=== PATIENT | female | born 1955 | race Hispanic/Latino ===

== ENCOUNTER 2016-10-10 13:17 | Emergency (ER) | payer OTHER, SELFPAY ==
--- NOTE | 2016-10-10 14:40 | ERRECORD ---
[facility] EMERGENCY RECORD HPI ABSCESS (13:50 JLOY) CHIEF COMPLAINT: Patient presents for evaluation of Pt with an area of swelling on her left lower back x8 years that she was told was a cyst. It started itching the last few days and today opened and a large amount of white material came out. Only minimal bleeding now. No pain. No fever. No other symptoms. HISTORIAN: History provided by patient. LOCATION: Symptoms are localized. TIME COURSE: Patient unable to describe onset of symptoms, There has been no change in the patient's symptoms over time. ASSOCIATED WITH: No associated chills, Associated with drainage, currently resolved, No associated fever, No associated proximal streaking, No associated warmth. COMPLICATING FACTORS: Complicating factors for wound healing include:, patient with history of diabetes. EXACERBATED BY: Patient's condition exacerbated by nothing. RELIEVED BY: Patient's condition relieved by nothing. TETANUS: Tetanus status up to date. ROS (13:52 JLOY) CONSTITUTIONAL: Historian denies chills, denies fever. GI: Historian denies nausea, denies vomiting. SKIN: Historian reports induration, reports skin lesions. NEUROLOGIC: Historian denies dizziness, denies headache. PAST MEDICAL HISTORY MEDICAL HISTORY: Notes: Cirrhosis of liver, Hep C, Flu vaccine up to date, Pneumococcal vaccine up to date, Past medical history includes history of diabetes, Past medical history includes gastrointestinal disease, cirrhosis, Past medical history includes hematological history, Past medical history includes history of hypertension. (13:40 LHAL) FEMALE SURGICAL HISTORY: vein related to right eye, Surgical history of cholecystectomy. (13:40 LHAL) PSYCHIATRIC HISTORY: Psychiatric history includes, anxiety, depression. (13:40 LHAL) SOCIAL HISTORY: Patient is a former tobacco user. (13:40 LHAL) NOTES: Nursing records reviewed, Agree with nursing records. (13:54 JLOY) KNOWN ALLERGIES No Known Drug Allergies CURRENT MEDICATIONS (13:38 LHAL) metFORMIN: TABLET : Strength - 500 mg : ORAL Patient Dose: 500 mg Oral 2 times a day. traZODone: &a-1R&a+25V*p+0X*c6416G*c202B*c15G*c2P*p-0X&a-25V&a+1R Name: Nidhi Bocanegra : 1955 F61 MedRec: [id number] AcctNum: [id number] Prepared: MonOct 10, 2016 13:59 by Interface Page 1 of 2 pMD [facility] EMERGENCY RECORD TABLET : Strength - 50 mg : ORAL Patient Dose: 50 mg Oral. VITAL SIGNS (13:30 LHAL) VITAL SIGNS: BP: 191/79 (Sitting), Pulse: 65 (Regular), Resp: 16 (Non-Labored), Temp: 98.8 (Oral), Pain: 7 (Constant), O2 sat: 98 on Room Air, Time: 10/10/2016 13:30. PHYSICAL EXAM (13:53 JL) CONSTITUTIONAL: Vital signs reviewed, Patient appears non toxic, Patient alert and oriented to person, place and time. EYES: Eye exam included findings of eyelids normal to inspection, Pupils equally round and reactive to light, Conjunctiva normal. RESPIRATORY CHEST: Respiratory exam included findings of no respiratory distress, Chest exam included findings of chest movement symmetrical. BACK: Back exam included findings of, left lower back with open sore, minimal swelling at border, minimal bloody drainage, no erythema or purulence. NEURO: Chuy coma scale 15, Neuro exam findings include patient oriented to person, place and time, Speech normal. SKIN: Skin exam included findings of skin warm, dry, and normal in color. PSYCHIATRIC: Normal affect. PROBLEM LIST No recorded problems DIAGNOSIS (13:47 JLOY) FINAL: PRIMARY: SEBACEOUS CYST. PRESCRIPTION No recorded prescriptions DISPOSITION PATIENT: Disposition Type: Discharge, Disposition: *Discharge Home. (13:47 JL) Patient left the department. (13:55 [facility]) Payan: NORIS=MD Curtis, Jamshid [facility]=OTILIA Garcia, Sarah &a-1R&a+25V*p+0X*e6238W*c202B*c15G*c2P*p-0X&a-25V&a+1R Name: Nidhi Bocanegra : 1955 F61 MedRec: [id number] AcctNum: [id number] Prepared: MonOct 10, 2016 13:59 by Interface Page 2 of 2 pMD MTDD
--- NOTE | 2016-10-10 14:44 | PICIS ---
[facility] EMERGENCY RECORD TRIAGE (13:38 LHAL) TRIAGE NOTES: HAS OPEN SORE TO LEFT LOWER BACK SINCE YEST, HAS HAD "BUMP" THERE FOR 8 YR. (13:38 LHAL) PATIENT: NAME: Nidhi Bocanegra, AGE: 61, GENDER: female, : Mon1955, TIME OF GREET: MonOct 10, 2016 13:18, PREFERRED LANGUAGE: Israeli, ETHNICITY: or , ECODE BILLING MAP: [facility], SSN: [id number], Zip Code: [address], KG WEIGHT: 75.75, PHONE: , , , PERSON ID: [id number], PCP: THOMAS. (13:38 LHAL) COMPLAINT: ABSCESS ON BACK. (13:38 LHAL) ADMISSION: URGENCY: 4 Non Urgent, ADMISSION SOURCE: Home, TRANSPORT: CAR, BED: ER -03. (13:38 LHAL) ASSESSMENT: Assessment: "BUMP" TO LEFT LOWER BACK X 8 YR, NOW OPEN AREA AFTER PUTTING ALOE VERA ON IT YESTERDAY WITH BLOODY DRAINAGE, Symptoms began YESTERDAY. (13:40 LHAL) PAIN: Patient complains of pain described as, aching, on a scale 0-10 patient rates pain as 7, Pain is constant, No aggravating factors, No relieving factors. (13:40 LHAL) IMMUNIZATIONS: Flu vaccine not up to date, Tetanus immunization up to date, Pneumococcal vaccine up to date. (13:40 LHAL) SIRS SCORING: Heart Rate 55-109 (0), Temp range 96.8-101.1 (0), respiratory rate 12-24 (0), Mental Status altered: no (0), Infection or Suspected Infection: No. (13:40 LHAL) TRIAGE SCREENING: Patient denies suicidal ideation, Patient denies presence of domestic violence. (13:40 LHAL) LMP: LMP: Menopause. (13:40 LHAL) PROVIDERS: TRIAGE NURSE: Sarah Garcia RN. (13:38 LHAL) VITAL SIGNS: BP 191/79, (Sitting), Pulse 65, (Regular), Resp 16, (Non-Labored), Temp 98.8, (Oral), Pain 7, (Constant), O2 Sat 98, on Room Air, Time 10/10/2016 13:30. (13:30 LHAL) KNOWN ALLERGIES No Known Drug Allergies CURRENT MEDICATIONS (13:38 LHAL) metFORMIN: TABLET : Strength - 500 mg : ORAL Patient Dose: 500 mg Oral 2 times a day. traZODone: TABLET : Strength - 50 mg : ORAL Patient Dose: 50 mg Oral. VITAL SIGNS (13:30 LHAL) VITAL SIGNS: BP: 191/79 (Sitting), Pulse: 65 (Regular), Resp: 16 (Non-Labored), Temp: 98.8 (Oral), Pain: 7 (Constant), O2 sat: 98 on Room Air, Time: 10/10/2016 13:30. &a-1R&a+25V*p+0X*g4379D*c202B*c15G*c2P*p-0X&a-25V&a+1R Name: Nidhi Bocanegra : 1955 F61 MedRec: [id number] AcctNum: [id number] Prepared: MonOct 10, 2016 14:04 by Interface Page 1 of 4 pMD [facility] EMERGENCY RECORD NURSING ASSESSMENT: SKIN (13:38 LHAL) CONSTITUTIONAL: Patient arrives ambulatory, Gait steady, History obtained from patient, Patient appears, uncomfortable, Patient cooperative, Patient alert, Oriented to person, place and time, Skin warm, Skin dry, Skin normal in color, Mucous membranes pink, Mucous membranes moist, Patient is well-groomed, Patient complains of SMALL OPEN SORE TO LEFT LOWER BACK. PAIN: aching pain, burning pain, TO OPEN SORE AREA, Onset of pain YESTERDAY, constant, on a scale 0-10 patient rates pain as 7, Pain exacerbated by nothing, Nothing has been tried to alleviate the pain. SKIN: Skin assessment findings include skin warm, Skin dry, Skin normal in color, Inspection findings include lesion(s), to LEFT LOWER BACK, Description: FAMILY DESCRIBES PT MAY HAVE HAD A CYST TO LEFT LOWER BACK X 8 YR, FAMILY PUT ALOE VERA ON IT YESTERDAY BECAUSE IT WAS BOTHERING HER, THEN AREA OPENED UP AND HAD WHITISH DRAINAGE, NOW HAS SMALL OPENING TO IT WITH BLOODY DRAINAGE., HAS 4X4 TO AREA., Inspection findings include no rash, Inspection findings include no redness, Inspection findings include no signs of infection, Inspection findings include no signs of trauma, Inspection findings include no swelling. SAFETY: Side rails up, Cart/Stretcher in lowest position, Family at bedside, Call light within reach, Hospital ID band on. NURSING PROCEDURE: BEDSIDE TESTING (13:50 LHAL) GLUCOSE: Glucose testing indicated for diabetic patient, Capillary blood sample, Result (mg/dl) 305. FOLLOW-UP: After procedure, results given to Dr. DR SORTO, Notes: PT ATE A BANANA JUST INSTITUTION DIRECTOR. SAFETY: Side rails up, Cart/Stretcher in lowest position, Family at bedside, Call light within reach, Hospital ID band on. NURSING PROCEDURE: DISCHARGE NOTE (13:53 LHAL) DISCHARGE: Patient discharged to home, ambulating without assistance, family driving, accompanied by other family member, Summary of Care printed/ provided, Patient requested and was provided an electronic copy of Discharge Instructions, Transition record given to patient, Discharge instructions given to patient, Simple or moderate discharge teaching performed, by Tacos GARCIA RN, Medication reconciliation form given, and reviewed with patient, Above person(s) verbalized understanding of discharge instructions and follow-up care, Notes: DC HOME STABLE, REDRESSED WOUND WITH 4X4. BELONGINGS: Belongings and valuables with patient upon arrival to the Emergency Department include:. NURSING PROCEDURE: NURSE NOTES (13:40 LHAL) NURSES NOTES: Patient examined by physician. ORDER DETAILS &a-1R&a+25V*p+0X*p9690I*c202B*c15G*c2P*p-0X&a-25V&a+1R Name: Nidhi Bocanegra : 1955 F61 MedRec: [id number] AcctNum: [id number] Prepared: MonOct 10, 2016 14:04 by Interface Page 2 of 4 pMD [facility] EMERGENCY RECORD Order Name: BLOOD GLUCOSE MONITOR, Status: Done, Time: 13:47 10/10/2016, User: [facility], - Ordered for: MD Acevedo Joshua, - Entered by: MD Acevedo Joshua - MonOct 10, 2016 13:46, - Quantity: 1. HPI ABSCESS (13:50 JLOY) CHIEF COMPLAINT: Patient presents for evaluation of Pt with an area of swelling on her left lower back x8 years that she was told was a cyst. It started itching the last few days and today opened and a large amount of white material came out. Only minimal bleeding now. No pain. No fever. No other symptoms. HISTORIAN: History provided by patient. LOCATION: Symptoms are localized. TIME COURSE: Patient unable to describe onset of symptoms, There has been no change in the patient's symptoms over time. ASSOCIATED WITH: No associated chills, Associated with drainage, currently resolved, No associated fever, No associated proximal streaking, No associated warmth. COMPLICATING FACTORS: Complicating factors for wound healing include:, patient with history of diabetes. EXACERBATED BY: Patient's condition exacerbated by nothing. RELIEVED BY: Patient's condition relieved by nothing. TETANUS: Tetanus status up to date. ROS (13:52 JLOY) CONSTITUTIONAL: Historian denies chills, denies fever. GI: Historian denies nausea, denies vomiting. SKIN: Historian reports induration, reports skin lesions. NEUROLOGIC: Historian denies dizziness, denies headache. PAST MEDICAL HISTORY MEDICAL HISTORY: Notes: Cirrhosis of liver, Hep C, Flu vaccine up to date, Pneumococcal vaccine up to date, Past medical history includes history of diabetes, Past medical history includes gastrointestinal disease, cirrhosis, Past medical history includes hematological history, Past medical history includes history of hypertension. (13:40 LHAL) FEMALE SURGICAL HISTORY: vein related to right eye, Surgical history of cholecystectomy. (13:40 LHAL) PSYCHIATRIC HISTORY: Psychiatric history includes, anxiety, depression. (13:40 LHAL) SOCIAL HISTORY: Patient is a former tobacco user. (13:40 LHAL) NOTES: Nursing records reviewed, Agree with nursing records. (13:54 JLOY) PHYSICAL EXAM (13:53 JLOY) CONSTITUTIONAL: Vital signs reviewed, Patient appears non toxic, &a-1R&a+25V*p+0X*r5504K*c202B*c15G*c2P*p-0X&a-25V&a+1R Name: Nidhi Bocanegra : 1955 F61 MedRec: [id number] AcctNum: [id number] Prepared: MonOct 10, 2016 14:04 by Interface Page 3 of 4 pMD [facility] EMERGENCY RECORD Patient alert and oriented to person, place and time. EYES: Eye exam included findings of eyelids normal to inspection, Pupils equally round and reactive to light, Conjunctiva normal. RESPIRATORY CHEST: Respiratory exam included findings of no respiratory distress, Chest exam included findings of chest movement symmetrical. BACK: Back exam included findings of, left lower back with open sore, minimal swelling at border, minimal bloody drainage, no erythema or purulence. NEURO: Chuy coma scale 15, Neuro exam findings include patient oriented to person, place and time, Speech normal. SKIN: Skin exam included findings of skin warm, dry, and normal in color. PSYCHIATRIC: Normal affect. EVENTS TRANSFER: Triage to Emergency Emergency Room -03. (MonOct 10, 2016 13:38 LHAL) Removed from Emergency Emergency Room -03. (13:55 LHAL) PROBLEM LIST No recorded problems DIAGNOSIS (13:47 JL) FINAL: PRIMARY: SEBACEOUS CYST. DISPOSITION PATIENT: Disposition Type: Discharge, Disposition: *Discharge Home. (13:47 JLOY) Patient left the department. (13:55 LHAL) INSTRUCTION (13:50 JLOY) DISCHARGE: SEBACEOUS CYST. FOLLOWUP: Follow up with Primary Care Physician in 7-10 days. SPECIAL: It appears you have a cyst that has opened and drained. It should begin to heal in the next few days. Please follow up with your doctor to assure it is healing well. PRESCRIPTION No recorded prescriptions IMAGING DISCHAR: Image captured from scanner. (13:53 LHAL) *SUPPLY CHARGE SHEET: Image captured from scanner. (13:54 LHAL) ADMIN DIGITAL SIGNATURE: MD Acevedo Joshua. (13:54 JL) OTILIA Garcia, Sarah. (13:55 LHAL) Payan: JL=MD Acevedo Joshua LHAL=OTILIA Garcia, Sarah &a-1R&a+25V*p+0X*t6300V*c202B*c15G*c2P*p-0X&a-25V&a+1R Name: Nidhi Bocanegra : 1955 F61 MedRec: [id number] AcctNum: [id number] Prepared: MonOct 10, 2016 14:04 by Interface Page 4 of 4 pMD [facility] MEDICATION RECONCILIATION You were seen in the Emergency Department on: MonOct 10, 2016 KNOWN ALLERGIES No Known Drug Allergies HOME MEDICATIONS CONTINUE PRESCRIBED metFORMIN : TABLET : Strength - 500 mg : ORAL Continue as prescribed Patient had been takin mg Oral 2 times a day. traZODone : TABLET : Strength - 50 mg : ORAL Continue as prescribed Patient had been takin mg Oral. &a-1R&a+25V*p+0X*e5745F*c202B*c15G*c2P*p-0X&a-25V&a+1R Name: BocanegraNidhi irving : 1955 F61 MedRec: [id number] AcctNum: [id number] Prepared: MonOct 10, 2016 14:04 by Interface pMD KOFFI
== END 2016-10-10 13:53 | disposition home or self-care (01) ==
LOC: NAV ERS 13:17
DX: L72.3 Sebaceous cyst (principal); K74.60 Unspecified cirrhosis of liver; I10 Essential (primary) hypertension; E11.9 Type 2 diabetes mellitus without complications; F41.9 Anxiety disorder, unspecified; F32.9 Major depressive disorder, single episode, unspecified; Z87.891 Personal history of nicotine dependence; Z90.49 Acquired absence of other specified parts of digestive tract; Z79.84 Long term (current) use of oral hypoglycemic drugs; Z79.891 Long term (current) use of opiate analgesic
CPT/HCPCS: 36416; 99283

== ENCOUNTER 2021-03-04 21:57 | Emergency (ER) | payer BC, OTHER ==
[2021-03-04 22:43] LABS: INR-International Normal Ratio 1.2; PTT 25.2 sec (22.9-36.1)
[2021-03-04 22:47] LABS: #Eosinphils 0.1 thou/uL (0.0-0.7); #Lymphocytes 2.2 thou/uL (1.20-3.40); #Monocytes 0.5 thou/uL (0.11-0.59); #Neutrophils 3.3 thou/uL (1.40-6.50); %Basophils 0.5 % (0.0-1.0); %Eosinophils 0.9 % (0.0-10.0); %Lymphocytes 35.6 % (21.0-51.0); %Monocytes 8.3 % (0.0-10.0); %Neutrophils 54.7 % (42.0-75.0); Mean Corpuscular HGB CONC 28.9 g/dL (32.0-36.0); Mean Corpuscular Hemoglobin 25.7 pg (27.0-31.0); Mean Corpuscular Volume 89.1 fL (78.0-98.0); Mean Platelet Volume 10.7 fL (7.4-10.4); Platelet Count 93 thou/uL (130-400); RBC Distribution Width 16.4 % (11.5-14.5); Red Blood Cell (RBC) Count 3.87 mill/uL (4.20-5.40); White Blood Cell (WBC) Count 6.1 thou/uL (4.8-10.8)
[2021-03-04 22:51] LABS: ALT (SGPT) 53 U/L (8-55); AST (SGOT) 29 U/L (5-34); Albumin 2.7 g/dL (3.4-4.8); Alkaline Phosphatase 122 U/L (40-110); Anion Gap 18 mmol/L (10-20); BUN (Urea Nitrogen) 29 mg/dL (9.8-20.1); Bilirubin, Total 0.9 mg/dL (0.2-1.2); Calc. Creatinine Clearance 0 mL/min (70-130); Calcium 8.3 mg/dL (7.8-10.44); Carbon Dioxide 17 mmol/L (23-31); Chloride 104 mmol/L (98-107); Globulin 2.1 g/dL (2.4-3.5); Lipase 26 U/L (8-78); Potassium 4.4 mmol/L (3.5-5.1); Protein, Total 4.8 g/dL (5.8-8.1); Sodium 135 mmol/L (136-145)
[2021-03-04] MEDS ORDERED: Ondansetron PF 4 MG/2 ML Vial ONE (22:53)
[2021-03-04] MEDS ORDERED: Sodium Chloride 0.9% 1,000 ML ONE (22:53)
[2021-03-04 22:59] LABS: Glucose 677 mg/dL (80-115)
[2021-03-04 23:08] LABS: Hypochromia SLIGHT = 6-15 cells (100X) (0-5/hpf); MDiff Complete? YES; Platelet Morphology Comment Appears Decreased
[2021-03-04] MEDS ORDERED: Aspirin Chewable 81 MG TAB ONE (23:33)
[2021-03-04 23:35] LABS: Bilirubin Negative (Negative); Blood, Urine Negative (Negative); Clarity Clear (Clear); Glucose, Urine (Dipstick) >=1000 mg/dL (Negative); Ketone, Urine Negative (Negative); Leukocyte Negative (Negative); Nitrite Negative (Negative); Protein, Urine (Dipstick) Trace mg/dL (Neg-Trace); Urobilinogen 0.2 mg/dL (Less than 2)
== END 2021-03-05 00:30 | disposition short-term general hospital (02) ==
LOC: NAV ERS 21:57
DX: I63.9 Cerebral infarction, unspecified (principal); E11.65 Type 2 diabetes mellitus with hyperglycemia; E86.0 Dehydration; R91.8 Other nonspecific abnormal finding of lung field; R74.02 Elevation of levels of lactic acid dehydrogenase [LDH]; E78.00 Pure hypercholesterolemia, unspecified; I10 Essential (primary) hypertension; K74.60 Unspecified cirrhosis of liver; Z87.891 Personal history of nicotine dependence; Z79.84 Long term (current) use of oral hypoglycemic drugs; Z79.899 Other long term (current) drug therapy
CPT/HCPCS: 36416; 70450; 71045; 74176; 80053; 81003; 82010; 82140; 83605; 83690; 83735; 83880; 84484; 85025; 85610; 85730; 93005; 94760; 96374; J2405; J7050